=== PATIENT | female | born 1990 | race Caucasian/White ===

== ENCOUNTER 2017-06-26 16:48 | Emergency (ER) | payer SELFPAY ==
[2017-06-26] MEDS ORDERED: BENADRYL PO ONE (19:47)
[2017-06-26] MEDS ORDERED: NORCO 7.5/325 PO ONE (19:47)
[2017-06-26] MEDS ORDERED: FLEXERIL PO ONE (19:47)
[2017-06-26] MEDS ORDERED: XYLOCAINE 1% MPF 5 mL INFILTRATI ONE (19:51)
[2017-06-26 20:12] VITALS: BP 130/73
[2017-06-26] MEDS ORDERED: TRIPLE ANTIBIOTIC TP ONE (21:04)
--- NOTE | 2017-06-26 21:40 | Emergency Department Report ---
ED Laceration HPI - HPI Chief Complaint: Wound/Laceration Stated Complaint: INDEX FINGER LAC Occurred When: Today Location: Upper Extremity (right index finger) Severity: mild Tetanus Status: Up to Date Laceration Symptoms: Yes Pain, No Foreign Body Sensation, No Numbness, No Weakness Other History: 27 year old female presents to ED with right index finger laceration at 4pm today. patient states she cut her finger with knife in kitchen while cooking. patient states her tetanus shot is up to date and she recieved tetanus shot 1-2 years ago. patient is stable, neurologically intact and in no acute distress. bleeding is well controlled. ED Review of Systems ROS: Stated complaint: INDEX FINGER LAC Other details as noted in HPI Constitutional: denies: chills, fever Eyes: denies: eye pain, eye discharge, vision change ENT: denies: ear pain, throat pain Respiratory: denies: cough, shortness of breath, wheezing Cardiovascular: denies: chest pain, palpitations Endocrine: no symptoms reported Gastrointestinal: denies: abdominal pain, nausea, diarrhea Genitourinary: denies: urgency, dysuria, discharge Musculoskeletal: denies: back pain, joint swelling, arthralgia Skin: other (right index finger laceration). denies: rash, lesions Neurological: denies: headache, weakness, numbness, paresthesias, confusion, abnormal gait, vertigo Psychiatric: denies: anxiety, depression Hematological/Lymphatic: denies: easy bleeding, easy bruising ED Past Medical Hx - Past Medical History Previous Medical History?: No - Surgical History Past Surgical History?: No - Social History Smoking Status: Never Smoker Substance Use Type: None - Medications Home Medications: Home Medications Medication Instructions Recorded Confirmed Last Taken Type Cephalexin [Keflex] 500 mg PO Q12HR #10 cap 06/26/17 Unknown Rx methOCARBAMOL [Robaxin TAB] 500 mg PO TID #15 tab 06/26/17 Unknown Rx Laceration Physical Exam - Exam General: Vital signs noted. No distress. Alert and acting appropriately. Wound Length (cm): 3 Laceration Location: Upper Extremity (right index finger laceration) Laceration Exam: Yes Normal Distal CMS (normal radial pulses bilaterally), No Foreign Body, No Exposed Tendon, Vessel, or Nerve, No Tendon Injury ED Course Vital Signs 06/26/17 06/26/17 06/26/17 17:01 19:53 20:11 Temperature 98.8 F Pulse Rate 77 62 Respiratory 18 16 16 Rate Blood Pressure 113/76 Blood Pressure 130/73 [Right] O2 Sat by Pulse 99 100 Oximetry - Laceration /Wound Repair Right Anterior Palm Finger Wound Location: upper extremity (right index finger) Wound Length (cm): 3 Wound's Depth, Shape: superficial, linear Wound Explored: clean Irrigated w/ Saline (ccs): 50 Betadine Prep?: Yes Anesthesia: 1% Lidocaine Volume Anesthetic (ccs): 5 Wound Debrided: minimal Wound Repaired With: sutures Suture Size/Type: 6:0, proline Number of Sutures: 5 Layer Closure?: No Sterile Dressing Applied?: Yes Progress: patient tolerated well ED Medical Decision Making - Radiology Data Radiology results: report reviewed XR finger right Soft tissue laceration noted. no radiodense foreign body is identified. No acute osseous abnormality is identified. No acute fracture or subluxation is identified. - Medical Decision Making 27 year old female presents to ED with right finger laceration. patient has tolerated sutures well. patient agrees and understands to return to ED or PCP for suture removal within 7-10 days. patient is stable, neurologically intact and in no acute distress. Critical care attestation.: If time is entered above; I have spent that time in minutes in the direct care of this critically ill patient, excluding procedure time. ED Disposition Clinical Impression: Finger laceration Qualifiers: Encounter type: initial encounter Finger: index finger Damage to nail status: without damage Foreign body presence: without foreign body Laterality: right Qualified Code(s): S61.210A - Laceration without foreign body of right index finger without damage to nail, initial encounter Disposition: DC-01 TO HOME OR SELFCARE Is pt being admited?: No Does the pt Need Aspirin: No Condition: Stable Instructions: Finger Laceration (ED) Additional Instructions: Please return to ED within 7-10 days for suture removal Prescriptions: Cephalexin [Keflex] 500 mg PO Q12HR #10 cap methOCARBAMOL [Robaxin TAB] 500 mg PO TID #15 tab Referrals: PRIMARY CARE, [Primary Care Provider] - 3-5 Days Forms: Work/School Release Form(ED)
--- NOTE | 2017-06-26 23:36 | XRay Report ---
FINAL REPORT EXAM: XR FINGER(S) 2+V RT HISTORY: RIGHT HAND, 2ND DIGIT laceration TECHNIQUE: Single view right hand with 2 additional views of the index finger. Three images PRIORS: None. FINDINGS: Bone mineralization appears within normal limits. No acute fracture or subluxation is identified. There is a defect in lateral soft tissues of the distal index finger. No radiodense foreign body is identified. IMPRESSION: 1. Soft tissue laceration is noted. No radiodense foreign body is identified. 2. No acute osseous abnormality is identified.
== END 2017-06-26 21:17 | disposition home or self-care (01) ==
LOC: ED 16:48
DX: S61.210A Laceration without foreign body of right index finger without damage to nail, initial encounter (principal); W26.0XXA Contact with knife, initial encounter; Y93.89 Activity, other specified; Y92.89 Other specified places as the place of occurrence of the external cause; Y99.8 Other external cause status
CPT/HCPCS: 81025; 99283; A6250

== ENCOUNTER 2017-08-06 18:30 | Emergency (ER) | payer SELFPAY ==
[2017-08-06 19:55] VITALS: BP 118/67
[2017-08-06 22:28] LABS: Bilirubin,Urine NEG (Negative); Blood,Urine NEG (Negative); Ketones,Urine NEG (Negative); Leukocyte Esterase,Urine NEG (Negative); Mucus,Urine 3+ /HPF; Nitrite,Urine NEG (Negative); Protein,Urine <15 mg/dL mg/dL (Negative); Urobilinogen,Urine < 2.0 mg/dL (<2.0)
== END 2017-08-07 00:27 | disposition left against medical advice (07) ==
LOC: ED 18:30
DX: R11.10 Vomiting, unspecified (principal); R51 Headache; Z53.21 Procedure and treatment not carried out due to patient leaving prior to being seen by health care provider
CPT/HCPCS: 81001; 81025